=== PATIENT | female | born 1965 | race Caucasian/White ===

== ENCOUNTER 2018-08-02 12:50 | Emergency (ER) | payer BC, OTHER ==
[2018-08-02] MEDS ORDERED: Ondansetron ODT 4 MG TAB ONE (13:29)
[2018-08-02 13:34] LABS: #Eosinphils 0.1 thou/uL (0.0-0.7); #Lymphocytes 2.7 thou/uL (1.20-3.40); #Monocytes 0.4 thou/uL (0.11-0.59); %Basophils 0.7 % (0.0-1.0); %Eosinophils 1.8 % (0.0-10.0); %Lymphocytes 42.3 % (21.0-51.0); %Monocytes 6.9 % (0.0-10.0); %Neutrophils 48.3 % (42.0-75.0); Hemoglobin 14.7 g/dL (12.0-16.0); Mean Corpuscular HGB CONC 34.6 g/dL (32.0-36.0); Mean Corpuscular Hemoglobin 30.2 pg (27.0-31.0); Mean Corpuscular Volume 87.2 fL (78.0-98.0); Mean Platelet Volume 7.2 fL (7.4-10.4); Platelet Count 334 thou/uL (130-400); RBC Distribution Width 11.8 % (11.5-14.5); Red Blood Cell (RBC) Count 4.88 mill/uL (4.20-5.40); White Blood Cell (WBC) Count 6.3 thou/uL (4.8-10.8)
[2018-08-02 14:05] LABS: ALT (SGPT) 47 U/L (8-55); AST (SGOT) 32 U/L (5-34); Albumin 4.5 g/dL (3.5-5.0); Alkaline Phosphatase 117 U/L (40-150); Anion Gap 11 mmol/L (10-20); BUN (Urea Nitrogen) 15 mg/dL (9.8-20.1); Bilirubin, Total 0.3 mg/dL (0.2-1.2); Calc. Creatinine Clearance 0 mL/min (70-130); Calcium 9.7 mg/dL (7.8-10.44); Carbon Dioxide 21 mmol/L (22-29); Chloride 107 mmol/L (98-107); Estimated GFR-MDRD 82; Globulin 3.3 g/dL (2.4-3.5); Glucose 97 mg/dL (70-105); Potassium 3.9 mmol/L (3.5-5.1); Protein, Total 7.8 g/dL (6.0-8.3); Sodium 135 mmol/L (136-145)
--- NOTE | 2018-08-02 14:18 | CT ---
CT HEAD NONCONTRAST: History: Headache. FINDINGS: No comparison. There is no evidence of acute intracranial hemorrhage or infarct. The ventricles appear normal in siz e, shape, and position. There is no mass effect or shift of midline structures. Visualized paranasal sinuses remain well aerated. IMPRESSION: No acute intracranial abnormalities are demonstrated. POS: [facility]
[2018-08-02] MEDS ORDERED: Fentanyl 100 MCG/2 ML VIAL ONE (14:22)
[2018-08-02] MEDS ORDERED: Ketorolac Tromethamine 30 MG/ML VIAL ONE (14:23)
[2018-08-02] MEDS ORDERED: Metoclopramide HCl 10 MG/2 ML VIAL ONE (14:23)
[2018-08-02] MEDS ORDERED: Dexamethasone 4 mg/ml Vial ONE (14:23)
== END 2018-08-02 15:41 | disposition home or self-care (01) ==
LOC: ERS 12:50
DX: R51 Headache (principal); F41.9 Anxiety disorder, unspecified
CPT/HCPCS: 36415; 70450; 80053; 85025; 96365; 96375; J1100; J1885; J2765; J3010; Q0162

== ENCOUNTER 2018-08-04 16:27 | Emergency (ER) | payer BC ==
[~2018-08-04 16:27] MED LIST: Iopamidol 370 76% 100 ML VIAL ONE
--- NOTE | 2018-08-04 20:14 | CT ---
CT ANGIOGRAM HEAD WITH IV CONTRAST AND 3D RECONSTRUCTIONS CT ANGIOGRAM NECK WITH IV CONTRAST AND 3D RECONSTRUCTIONS 08/04/18 HISTORY: Patient with sudden onset of occipital headache on 08/02/18. Patient now complains of throbbing neck p ain with pain extending up to head. COMPARISON: Noncontrast CT exam on 08/02/18. FINDINGS: Noncontrast imaging of the head was not performed on today's examination. Postcontrast imaging limits evaluation for subarachnoid hemorrhage. However, no parenchymal or definite extra-axial hemorrhage i s seen on this exam. There is no acute infarction appreciated on the postcontrast images. There is a normal arrangement of the great vessels at the aortic arch which are widely patent. The b ilateral common carotid, internal and external carotid arteries are patent. There are codominant and patent bilateral vertebral arteries seen. There is no focal stenosis involving either internal carotid artery based on NASCET criteria. The bilateral middle cerebral, anterior cerebral and posterior cerebral arteries are patent. The dist al vertebral arteries are patent. The distal vertebral arteries are patent. There is no focal stenosi s or branch occlusion involving the [place] or vertebrobasilar system. No aneurysm is seen w ithin the limitations of the technique of this examination. IMPRESSION: 1. No stenosis or evidence of dissection involving the carotid arteries or vertebral arteries. 2. No focal stenosis or branch occlusion involving the [place] or vertebrobasilar syste m. There is no aneurysm identified within the limitations of the technique of this exam. 3. Above findings discussed with Dr. Flaquito Johnson in the Emergency Department on 08/04/18 at 182 4 hours. POS: [facility]
== END 2018-08-04 18:48 | disposition home or self-care (01) ==
LOC: ERS 16:27
DX: F41.9 Anxiety disorder, unspecified (principal); Z79.899 Other long term (current) drug therapy; Z79.891 Long term (current) use of opiate analgesic
CPT/HCPCS: 70496; 70498

== ENCOUNTER 2018-08-04 23:13 | Observation (INO) | payer BC ==
[2018-08-04] MEDS ORDERED: Lidocaine Viscous Sol 2% 15 ml UD Cup ONE (23:26)
[2018-08-04] MEDS ORDERED: Ondansetron PF 4 MG/2 ML Vial ONE (23:26)
[2018-08-04] MEDS ORDERED: Mag-Al 1200 mg/1200 mg/30 ML UDCUP ONE (23:26)
[2018-08-04] MEDS ORDERED: Morphine 4 MG/ML VIAL ONE (23:26)
[2018-08-04 23:35] LABS: #Basophils 0.1 thou/uL (0.0-0.2); #Eosinphils 0.1 thou/uL (0.0-0.7); #Lymphocytes 4.5 thou/uL (1.20-3.40); #Monocytes 0.5 thou/uL (0.11-0.59); #Neutrophils 4.9 thou/uL (1.40-6.50); %Basophils 1.4 % (0.0-1.0); %Eosinophils 0.7 % (0.0-10.0); %Lymphocytes 44.4 % (21.0-51.0); %Monocytes 4.9 % (0.0-10.0); %Neutrophils 48.5 % (42.0-75.0); Hemoglobin 13.8 g/dL (12.0-16.0); Mean Corpuscular HGB CONC 35.2 g/dL (32.0-36.0); Mean Corpuscular Hemoglobin 30.7 pg (27.0-31.0); Mean Corpuscular Volume 87.1 fL (78.0-98.0); Mean Platelet Volume 7.2 fL (7.4-10.4); Platelet Count 350 thou/uL (130-400); Red Blood Cell (RBC) Count 4.49 mill/uL (4.20-5.40); White Blood Cell (WBC) Count 10.1 thou/uL (4.8-10.8)
--- NOTE | 2018-08-04 23:43 | RAD ---
PORTABLE AP CHEST X-RAY: 08/04/18 HISTORY: Chest pain with radiation to back. COMPARISON: 04/28/09. FINDINGS: The cardiac silhouette and pulmonary vasculature are within normal limits for the portable technique of the study. The lungs are clear. there has been no interval change from the prior exam. IMPRESSION: No acute cardiopulmonary process. POS: [facility]
[2018-08-04 23:56] LABS: ALT (SGPT) 98 U/L (8-55); AST (SGOT) 75 U/L (5-34); Albumin 4.3 g/dL (3.5-5.0); Alkaline Phosphatase 118 U/L (40-150); Anion Gap 14 mmol/L (10-20); BUN (Urea Nitrogen) 18 mg/dL (9.8-20.1); Bilirubin, Total 0.3 mg/dL (0.2-1.2); Calc. Creatinine Clearance 0 mL/min (70-130); Calcium 9.3 mg/dL (7.8-10.44); Carbon Dioxide 23 mmol/L (22-29); Chloride 106 mmol/L (98-107); Estimated GFR-MDRD 72; Globulin 3.1 g/dL (2.4-3.5); Glucose 121 mg/dL (70-105); Lipase 16 U/L (8-78); Potassium 3.4 mmol/L (3.5-5.1); Protein, Total 7.4 g/dL (6.0-8.3); Sodium 140 mmol/L (136-145)
[2018-08-05] MEDS ORDERED: Morphine 4 MG/ML VIAL ONE (00:51)
[2018-08-05 01:33] LABS: Bilirubin Negative (Negative); Blood, Urine Negative (Negative); Clarity CLEAR (Clear); Glucose, Urine (Dipstick) Negative (Negative); Leukocyte Negative (Negative); Nitrite Negative (Negative); Protein, Urine (Dipstick) Negative (Neg-Trace); Urobilinogen 0.2 mg/dL (0.2-1.0)
[2018-08-05 01:40] LABS: Specific Gravity, Urine 1.051 (1.002-1.036)
[2018-08-05] MEDS ORDERED: cefOXitin Sodium/Dextrose,Iso 2 GM in Premix Bag 1 BAG IVPB SCH (02:00)
[2018-08-05] MEDS ORDERED: Acetaminophen 325 MG TAB PO PRN (02:47)
[2018-08-05] MEDS ORDERED: Ondansetron PF 4 MG/2 ML Vial IVP PRN (02:47)
[2018-08-05] MEDS ORDERED: Ondansetron ODT 4 MG TAB SL PRN (02:47)
[2018-08-05 03:25] VITALS: BMI 28.6
[2018-08-05] MEDS: Dextrose 5 % And 0.9 % NaCl 1,000 ML IV SCH ×2 (04:50→18:00)
[2018-08-05] MEDS: Morphine 4 MG/ML VIAL SLOW IVP PRN ×2 (04:59→09:29)
--- NOTE | 2018-08-05 08:38 | CT ---
PRELIMINARY REPORT/[facility]/EMERGENTY AFTER-HOURS PROCEDURE CT Abdomen and Pelvis Without Contrast EXAM DATE/TIME: 08/05/2018 12:16 AM CLINICAL HISTORY: 53 years old, female; Pain; Abdominal pain; Epigastric; Patient HX: F53 reports to ed C/O epigastric pain, radiating to back, and feeling bloated. PT has never had heart burn before, but thinks it may b e. PT took tums, but haven't helped. PT denies nausea. PT reports shooting pain from lower back to be tween lungs, which she came in for several days ago with headache, and returned earlier today for cta chest. TECHNIQUE: Axial computed tomography images of the abdomen and pelvis without contrast. COMPARISON: No relevant prior studies available. FINDINGS: Lower thorax: No acute findings. ABDOMEN: Liver: Normal. No mass. Gallbladder and bile ducts: Cholelithiasis/gallbladder sludge. No cholecystitis. No biliary ductal dilatation. Pancreas: Normal. No ductal dilation. Spleen: Normal. No splenomegaly. Adrenals: Normal. No mass. Kidneys and ureters: Normal. No hydronephrosis. Stomach and bowel: No bowel wall thickening or intestinal obstruction. Appendix: Normal appendix. PELVIS: Bladder: Unremarkable as visualized. Reproductive: Prior hysterectomy. ABDOMEN and PELVIS: Intraperitoneal space: Normal. No free air. No significant fluid collection. Bones/joints: No acute fracture. No dislocation. Soft tissues: Unremarkable. Vasculature: Normal. No abdominal aortic aneurysm. Lymph nodes: Normal. No enlarged lymph nodes. IMPRESSION: No acute findings. Thank you for allowing us to participate in the care of your patient. Dictated and Authenticated by: Zeus Scott MD 08/05/2018 12:44 AM Central Time ([place] & [place]) FINAL REPORT EMERGENT AFTER HOURS CT OF THE ABDOMEN AND PELVIS: IMPRESSION: Agree with the preliminary interpretation given by [facility]. POS: [facility]
[2018-08-05] MEDS ORDERED: Ketorolac Tromethamine 30 MG/ML VIAL IVP SCH (10:00)
[2018-08-05] MEDS ORDERED: Acetaminophen 1,000 MG in Premix Bag 1 BAG IVPB SCH (10:00)
[2018-08-05] MEDS ORDERED: Scopolamine 1.5 mg/72 hour Patch TD SCH (10:00)
--- NOTE | 2018-08-05 10:30 | HP ---
HISTORY OF PRESENT ILLNESS: A 53-year-old female works for [employer] in the [employer]. The patient has had several days of epigastric right upper quadrant pain. She presented to the emergency room with normal liver function tests and a CAT scan of the abdomen and pelvis demonstrating cholecystitis and cholelithiasis. There is no biliary ductal dilatation. Her liver function tests are normal. CBC normal. ALLERGIES: NONE. SOCIAL HISTORY: Tobacco, none. Alcohol, none. MEDICATIONS: 1. Ibuprofen. 2. Tylenol with Codeine. 3. Reglan. PAST SURGICAL HISTORY: , total abdominal hysterectomy, oophorectomy, breast augmentation, and abdominoplasty. REVIEW OF SYSTEMS: Noncontributory. PHYSICAL EXAMINATION: VITAL SIGNS: Height 5 feet 4 inches, weight 167 pounds, BMI 28. Temperature 97.5, pulse 67, and blood pressure 147/90. HEAD, EARS, EYES, NOSE, AND THROAT: Unremarkable. Sclerae are nonicteric. SKIN: Nonjaundiced. NEUROLOGICAL: Intact. No deficits. LUNGS: Clear to auscultation. CARDIAC: Regular rate and rhythm without murmur or gallop. ABDOMEN: Soft, nontender, except in her epigastric, right upper quadrant where she has mild guarding. EXTREMITIES: Unremarkable. ASSESSMENT AND PLAN: Cholecystitis and cholelithiasis. We recommend a laparoscopic video cholecystectomy. Risks of infection, bleeding, visceral and biliary injury, open cholecystectomy were discussed. Questions answered. Will plan laparoscopic cholecystectomy today. Job ID: [id number]
[2018-08-05] MEDS ORDERED: Bupivacaine HCl 0.5%/Epinephrine 1:200,000/PF 30 ml Vial ONE (12:27)
[2018-08-05] MEDS ORDERED: Fentanyl 100 MCG/2 ML VIAL ONE ×3 (12:33→14:05)
[2018-08-05] MEDS ORDERED: Ketorolac Tromethamine 30 MG/ML VIAL ONE (12:35)
[2018-08-05] MEDS ORDERED: Ibuprofen 600 MG TAB PO PRN (12:44)
[2018-08-05] MEDS ORDERED: Acetaminophen 500 MG TAB PO PRN (12:44)
[2018-08-05] MEDS ORDERED: traMADol HCl 50 MG TAB PO PRN ×2 (12:44)
[2018-08-05] MEDS ORDERED: Dexamethasone 20 MG/5 ML VIAL ONE (12:45)
[2018-08-05] MEDS ORDERED: Lidocaine 1% PF 5 ML VIAL ONE (12:45)
[2018-08-05] MEDS ORDERED: Ondansetron PF 4 MG/2 ML Vial ONE (12:45)
[2018-08-05] MEDS ORDERED: PROPOFOL 200 MG/20 ML VIAL ONE (12:45)
[2018-08-05] MEDS ORDERED: Glycopyrrolate 0.2 MG/ML 5 ML SYRINGE ONE (12:45)
[2018-08-05] MEDS ORDERED: Levofloxacin 500 mg/D5W 100 ml Premix Bag ONE (13:00)
[2018-08-05] MEDS ORDERED: Morphine Sulfate 2 MG/ML SYRINGE SLOW IVP PRN (13:37)
[2018-08-05] MEDS ORDERED: PACU-Morphine 4MG/ML VIAL SLOW IVP PRN (13:37)
[2018-08-05] MEDS ORDERED: Ondansetron HCl/PF 4 MG/2 ML Vial IVP PRN (13:37)
[2018-08-05] MEDS ORDERED: Promethazine HCl 25 MG/ML VIAL IM PRN (13:37)
[2018-08-05] MEDS ORDERED: Meperidine HCl/PF 25 MG/ML VIAL SLOW IVP PRN (13:37)
[2018-08-05] MEDS ORDERED: Promethazine HCl 25 MG/ML VIAL SLOW IVP PRN (13:37)
[2018-08-05] MEDS ORDERED: HYDROmorphone 2 MG/ML VIAL SLOW IVP PRN (13:37)
--- NOTE | 2018-08-05 17:44 | OP ---
DATE OF PROCEDURE: 08/05/2018 PREOPERATIVE DIAGNOSES: Chronic cholecystitis, cholelithiasis. PROCEDURE PERFORMED: Laparoscopic video cholecystectomy. ANESTHESIA: General. Local of 0.5% Marcaine with epinephrine 30 mL. DESCRIPTION OF PROCEDURE: The patient was taken to the operating room. Under general anesthesia, abdomen was prepared with ChloraPrep and draped in routine fashion. 0.5% Marcaine with epinephrine was infiltrated in the skin and subcutaneous tissue at each port site. An infraumbilical incision was made. Pneumoperitoneum to 15 mmHg was obtained with a Veress needle, replaced with a 5 port, and a laparoscope was inserted. A right subxiphoid incision was made, and an 11 port was placed. A right subcostal incision was made, midclavicular and anterior axillary line, the 5 port was placed. The fundus of the gallbladder was grasped at the cephalad. The infundibulum was dissected laterally. Cystic artery and duct were dissected free. Critical view was obtained. Cystic artery and duct were double clipped proximally and divided. Gallbladder was dissected free from the liver bed obtaining good hemostasis prior to division of the final peritoneal attachments. Gallbladder and contents were removed. There were several moderate-sized stones. Good hemostasis was ensured with the cautery. Liver appeared to be normal. Good hemostasis was noted. Irrigant and pneumoperitoneum were evacuated. All skin incisions were approximated with interrupted subdermal 4-0 Monocryl, and Sewell glue was applied. She tolerated the procedure well. Job ID: [id number]
--- NOTE | 2018-08-05 18:30 | DIS ---
DATE OF ADMISSION: 08/05/2018 DATE OF DISCHARGE: 08/05/2018 DISCHARGE DIAGNOSES: Cholecystitis, cholelithiasis. PROCEDURE: CT scan of the abdomen and pelvis in the emergency room. HISTORY: A 53-year-old female with 3-day history of epigastric right upper quadrant pain, was seen in the emergency room liver function test and CAT scan of the abdomen and pelvis revealed gallstones without biliary ductal dilatation. The patient was hospitalized overnight, given intravenous fluids, antibiotics, and taken to the operating room for laparoscopic video cholecystectomy. Postoperatively, discharged home and will follow up in my office in 2 to 3 weeks without restrictions in diet or activity. She used to take Tylenol, ibuprofen [id number] for pain, and Ultram as necessary, prescription #[id number] refill given. Job ID: [id number]
[2018-08-05 19:57] VITALS: BP 148/90; TEMP 97.7
[2018-08-06] MEDS ORDERED: Polyethylene Glycol 3350 17 GM Packet PO SCH (09:00)
--- NOTE | 2018-08-09 15:53 | EKG ---
Test Reason : Blood Pressure : / mmHG Vent. Rate : 070 BPM Atrial Rate : 070 BPM P-R Int : 146 ms QRS Dur : 082 ms QT Int : 436 ms P-R-T Axes : 065 049 040 degrees QTc Int : 470 ms Normal sinus rhythm Possible Left atrial enlargement Prolonged QT Abnormal ECG Confirmed by SEBASTIAN VORA ([id number]), editor department JASON WHEATLEY ([id number]) on 08/09/2018 3:53:00 PM Referred By: Confirmed By:SEBASTIAN VORA
== END 2018-08-05 19:55 | disposition home or self-care (01) ==
LOC: ERS 23:13 → SURG A 08-05 01:52
PROVIDERS: ADMIT Specialist; ATTEND Specialist
PROC: 0FT44ZZ Resection of Gallbladder, Percutaneous Endoscopic Approach (ICD-10-PCS; principal; 2018-08-05)
DX: K80.10 Calculus of gallbladder with chronic cholecystitis without obstruction (principal); Z90.710 Acquired absence of both cervix and uterus; Z90.721 Acquired absence of ovaries, unilateral; Z98.890 Other specified postprocedural states
CPT/HCPCS: 71045; 74176; 80053; 81003; 83690; 84484; 85025; 88304; 93005; 96361; 96365; 96375; 96376; G0378; J0131; J0670; J1100; J1885; J1956; J2001; J2270; J2405; J2704; J3010